=== PATIENT | female | born 1970 | race Caucasian/White ===

== ENCOUNTER 2022-03-21 19:01 | Emergency (ER) | payer OTHER ==
[~2022-03-21] VITALS: Ht 154.9 cm; Wt 70.3 kg
[2022-03-21 19:11] VITALS: BP 144/89
--- NOTE | 2022-03-21 19:32 | NUR ---
SEEN AND EXAMINED BY PA, WITH ORDERS AND CARRIED OUT
[2022-03-21] MEDS ORDERED: KETOROLAC 30 MG/ML VIAL IM ONE (19:35)
[2022-03-21] MEDS ORDERED: HYDROcodone/APAP 5/325 MG 1 TAB TAB PO ONE (19:35)
[2022-03-21] MEDS ORDERED: IBUP-2213 PO ×2 (19:51→19:52)
[2022-03-21] MEDS ORDERED: ACET-8386 PO (19:51)
[2022-03-21] MEDS ORDERED: LID5T TP ×2 (19:51→19:52)
--- NOTE | 2022-03-21 20:20 | NUR ---
MEDICATED PER [facility] ORDER, TOLERATED WELL.
--- NOTE | 2022-03-21 20:51 | NUR ---
Patient discharged with v/s stable. Written and verbal after care instructions given and explained. Patient alert, oriented and verbalized understanding of instructions. Ambulatory with steady gait. All questions addressed prior to discharge. ID band removed. Patient advised to follow up with PMD. Rx of MOTRIN, NORCO, AND LIDODERM given. Patient educated on indication of medication including possible reaction and side effects. Opportunity to ask questions provided and answered.
== END 2022-03-21 20:51 | disposition home or self-care (01) ==
LOC: MED 19:01
DX: M54.50 Low back pain, unspecified (principal); G89.29 Other chronic pain; R03.0 Elevated blood-pressure reading, without diagnosis of hypertension; Z79.1 Long term (current) use of non-steroidal anti-inflammatories (NSAID); Z79.899 Other long term (current) drug therapy; Z79.891 Long term (current) use of opiate analgesic
CPT/HCPCS: 81002; 81025; 96372; 99283; J1885